=== PATIENT | male | born 1975 | race Caucasian/White ===

== ENCOUNTER 2024-12-06 14:43 | Emergency (ER) | payer BC, SELFPAY ==
--- NOTE | 2024-12-06 14:57 | ED_ITS ---
HPI - Eye Problem General Chief complaint: Eye Problems Stated complaint: Left Eye Problem Time Seen by Provider: 12/06/24 14:57 Source: patient, RN notes reviewed and old records reviewed Mode of arrival: ambulatory Limitations: no limitations History of Present Illness HPI Narrative: 49-year-old male presents to the [facility] with complaints of sudden onset blurry vision to the left eye that started when he woke up Tuesday morning. Denies any trauma. No redness. Does wear glasses. Tried reaching out to an dot compliance specialist, sure vision. Denies any floaters, shadows or flashes of light. Denies any pain Treatments Prior to Arrival: none Related Data Home Medications ?Medication ?Instructions ?Recorded ?Confirmed ?Last Taken ?Type buspirone 10 mg tablet mg 12/06/24 Unknown History lamotrigine 200 mg tablet mg 12/06/24 Unknown History pravastatin 10 mg tablet mg 12/06/24 Unknown History venlafaxine 150 mg mg PO 12/06/24 Unknown History capsule,extended release 24 hr Allergies Allergy/AdvReac Type Severity Reaction Status Date / Time No Known Allergies Allergy Verified 12/06/24 14:46 Review of Systems Review of Systems: All systems reviewed & are unremarkable except as noted in HPI and below Constitutional: Constitutional: Reports no additional constitutional complaints Eyes: Eyes: Reports as per HPI ENT: Reports system reviewed and no additional complaints, except as documented Cardiovascular: Cardiovascular: Reports no additional cardiovascular complaints, Denies chest pain and Denies dyspnea Respiratory: Respiratory: Reports no additional respiratory complaints, Denies chest congestion, Denies cough and Denies dyspnea Musculoskeletal: Musculoskeletal: Reports no additional musculoskeletal complaints Integumentary/Breasts: Skin/Breast: Reports system reviewed and no additional complaints, except as docu PMFSH Comments At the time of my signature, I reviewed and agree with the nursing past medical, surgical, social, and family history. There is no relevant family history pertinent to the patient complaint. Exam Const: General: cooperative, healthy appearing, comfortable, no acute distress, well developed, alert and well nourished Nutritional Appearance: well nourished Orientation/consciousness: patient oriented x3 Limitations: no limitations HENMT: Head: normal to inspection Ears: hearing grossly normal bilaterally, external ears normal, TM's normal bilaterally, EAC's normal, mastoids normal and no periauricular adenopathy Mouth: Yes Normal oral and palatal mucosa present, Yes lip normal, Yes tongue normal and Yes moist mucous membranes Eyes: General: appearance normal, both eyes and all related structures Alignment and Position: alignment normal Periorbital: periorbital findings normal Eyelids: eyelids normal Conjunctivae: conjunctivae normal Sclera: sclerae normal Cornea: corneas normal Pupils: Equal, round and reactive pupils present EOM: EOMs intact bilaterally and No Nystagmus present Direct Ophthalmoscopy: no photophobia Neck: Neck: normal visual inspection, full ROM, no lymphadenopathy and no meningeal signs Chest: Chest palpation & inspection: normal inspection of the chest Resp: Effort & Inspection: normal respiratory effort and able to speak in complete sentences Auscultation: clear to auscultation bilaterally, no crackles, no rales, no rhonchi and no wheezes Cardio: Rate: regular rate Skin: General skin exam: normal color and no rashes or lesions noted Neuro: General: patient oriented x3, gait normal, moves all extremities and no meningeal signs Cognition (Neuro): normal cognition Speech: normal speech Gait exam (Neuro): Normal gait present Extrem: General: normal to inspection, full ROM, capillary refill normal and normal gait Psych: Appearance: grossly normal and well kempt Mental Status: mental status grossly normal Speech and movement: Normal speech and movement present and Clear speech present Affect: normal affect Attitude: cooperative Course Course Level of Care: Express Care Visit Vital Signs Vital signs: Vital Signs Temperature 97.8 F 12/06/24 15:00 Pulse Rate 75 12/06/24 15:00 Respiratory Rate 16 12/06/24 15:00 Blood Pressure 140/81 12/06/24 15:00 Pulse Oximetry 97 12/06/24 15:00 Oxygen Delivery Room Air 12/06/24 15:00 Temperature 97.8 F 12/06/24 15:00 Pulse Rate 75 12/06/24 15:00 Respiratory Rate 16 12/06/24 15:00 Blood Pressure 140/81 12/06/24 15:00 Pulse Oximetry 97 12/06/24 15:00 Oxygen Delivery Room Air 12/06/24 15:00 Reviewed MDM - Eye Problem MDM Narrative Medical decision making narrative: Patient with 2 day history of left eye blurry vision, denies any pains, callie aters, shadows. Patient with no trauma. No acute findings noted on exam. No hyphema. Discussed with patient to pursue to the emergency room, discussed concerns for an eye stroke, retinal detachment as well as could be a simple as eye strain, migraines. Discussed with patient that we are unable to perform a complete eye exam. Unable to do advanced testing to rule out diagnosis that we discussed in detail. Patient is declining transfer to the ER at this time, wants to see an eye doctor instead. Patient states if he can not get into the eye doctor he will go directly to the emergency room Differential Diagnosis Differential diagnosis: Likely corneal abrasion, conjunctivitis, acute iritis, hyphema, periorbital cellulitis, glaucoma and other (Retinal detachment, eye stroke) Critical Care Time Critical Care Time Critical Care Time: No Discharge Plan Discharge Clinical Impression: Blurred vision, left eye Patient Disposition: Home, Self-Care Condition: Stable Instructions: Blurred Vision (ED) Additional Instructions: It is recommended that you do see an eye doctor as soon as possible. If he cannot get in with urine eye doctor please go directly to emergency room for further evaluation, testing. Patient Language: Gabonese Prescriptions: No Action lamotrigine 200 mg tablet venlafaxine 150 mg capsule,extended release 24hr PO pravastatin 10 mg tablet buspirone 10 mg tablet Follow-up/Referrals: Adam,Suresh Alva MD [Primary Care Provider] - 2 Weeks (express care follow up ) Stand Alone Forms: Work/School Release IP Time of Disposition: 15:09
[2024-12-06 15:00] VITALS: BP 140/81; PULSE 75; RESP 16; TEMP 36.6; O2SAT 97
--- OUTSIDE RECORDS SUMMARY | 2024-12-06 15:07 | XMS_ITS | Continuity of Care Document ---
Author Organization [facility] Address [address] [place] [address] [place] [address] Phone Care Team Providers Care Dermatologist Managing Partner Name Role Phone Natan Rosa MD Unavailable Unavailable Procedures Procedure Date Office/outpatient Visit, [facility] Office/outpatient Visit, [facility] Advance Directives Directive Yes / No Effective Date File Name No Information Encounters Encounter Description Practice Location Reason(s) For Visit Diagnoses Date Provider Providers Copied on Encounter Office/outpat ient Visit, [facility], [id number] [place] [address] [address], [place], [place], [id number], tel:[phone] SEC [place] Professional No Information 9 Shelley Gama. [address] [facility] [place], [place], [id number], [place]. tel:[phone] Office/outpat ient Visit, [facility], [address] [place] [address] [address], [place], [place], [id number], tel:[phone] SEC Trevor PR Professional No Information 9 Shelley Gama. [address] [facility], [place], [place], [id number], [place]. tel:[phone] Family History Family Member Type Diagnosis Age At Onset No Information Payers Payer name Insurance type Covered alliance party ID Authoriza tion(s) [employer] [place] [id number] Social History Type Description Quantity Date Captured Comments Sex Male Smoking Status No Information Chief Complaint And Reason For Visit No Information Reason For Referral Reason For Referral No Information History Of Present Illness Encounter Date Complaint History Of Prese nt Illness No Information Functional Status Date Functional Assessmen t No Information Instructions Date Instruction Additional Infor mation No Information Assessments Type Assessment Date No Information Patient Care Teams Name Effective Dates (start - stop) Status Members No Information
--- OUTSIDE RECORDS SUMMARY | 2024-12-06 15:07 | XMS_ITS | Encounter Summary ---
Author Organization [facility] Address 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 Gender Identity Not on file Sexual Orientation Not on file documented as of this encounter Last Filed Vital Signs Vital Sign Reading Time Taken Comments Blood Pressure 124/70 03/01/2005 1:15 PM CDT Pulse - - Temperature 36.9 C (98.5 F) 03/01/2005 1:15 PM CDT Respiratory Rate - - Oxygen Saturation - - Inhaled Oxygen Concentration - - Weight 70.3 kg (155 lb) 03/01/2005 1:15 PM CDT Height - - Body Mass Index - - documented in this encounter Plan of Treatment Upcoming Encounters Date Type Department Care Team (Late Contact Info) Description 03/13/2025 9:00 AM CDT Office Visit [facility] Primary Care [address] [place] [phone] Suresh Medina MD [address] [place] [address] [address] [phone] documented as of this encounter Visit Diagnoses Not on filedocumented in this encounter Care Teams Patch Setter Relationship Specialty Start Date End Date Suresh Medina MD [address] [place] [address] [address] [phone] PCP - General 07/20/05 documented as of this encounter
--- OUTSIDE RECORDS SUMMARY | 2024-12-06 15:07 | XMS_ITS | Clinical Summary ---
Author Organization [id number] Address [address] [place] [address] Care Team Providers Care Leadership Development Instructor Name Role Phone Suresh Medina MD Primary Care Provider + Allergies No known active allergies Medications venlafaxine XR (EFFEXOR-XR) 150 mg 24 hr capsule Take 1 capsule (150 mg total) by mouth daily 03/13/2018 Active lamoTRIgine (LaMICtal) 200 mg tablet 01/04/2019 Active busPIRone (BUSPAR) 10 mg tablet Take 1 tablet (10 mg total) by mouth 2 times daily 06/30/2018 Active pravastatin (PRAVACHOL) 10 mg tablet Take 1 tablet (10 mg total) by mouth daily 10/07/2023 Active Active Problems Problem Noted Date Diagnosed Date Encounter for screening colonoscopy 11/08/2023 Immunizations Immunization Administration Dates Next Due Influenza, Quadrivalent, Spl it, Preservative Free, Intramuscular 06/10/2021 Medical History Medical History Date Comments Seizures (HCC) Social History Tobacco Use Types Packs/Day Years Used Date Smoking Tobacco: Never Smokeless Tobacco: Never AUDIT-C Answer Date Recorded Q1: How often do you have a drink containing alc ohol? Monthly or less 07/17/2024 Average Number of Drinks Not on file 024 Frequency of Binge Drinking Not on file 07/06 Personal Safety Answer Date Recorded Have you ever been in or are you currently in a harmful physical or emotional relationship or is someone making you feel afraid or unsafe? 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 Gender Identity Not on file Sexual Orientation Not on file Obstetrics History Last Filed Vital Signs Vital Sign Reading Time Taken Comments Blood Pressure 129/84 07/18/2024 8:57 AM LADLE BUILDER Pulse 60 07/18/2024 8:57 AM LADLE BUILDER Temperature 36.8 C (98.3 F) 07/18/2024 8:57 AM LADLE BUILDER Respiratory Rate 16 07/18/2024 8:57 AM LADLE BUILDER Oxygen Saturation 98% 07/18/2024 8:57 AM LADLE BUILDER Inhaled Oxygen Concentration - - Weight 100.2 kg (221 lb) 07/18/2024 7:18 AM LADLE BUILDER Height 177.8 cm (5' 10 ) 07/18/2024 7:18 AM LADLE BUILDER Body Mass Index 31.71 07/18/2024 7:18 AM LADLE BUILDER Plan of Treatment Health Maintenance Due Date Last Done Comments Depression Screening 1975 Hepatitis C Screening 1973 Prostate Cancer Screening-PSA 1973 Hepatitis B Screening 1991 Regular Well Visit/Exam 18-64 1991 Covid-19 Vaccine (3 - season) 2024 11/25/2020, 11/04/2020 Zoster Vaccine (2 of 2) 08/06/2024 06/11/2024 DTaP/Tdap/Td Vaccine (3 - Td or Tdap) 09/20/2032 09/20/2022, 10/02/2010 Colon Cancer Screening-Colonoscopy 07/18/2034 07/18/2024 Pneumococcal vaccine <65 Aged Out 10/15/2019 No longer eligible based on patient's age to complete this topic Influenza Vaccine Completed 2024, , 06/07/2022, Additional history exists Procedures Procedure Name Priority Date/Time Associated Diagnosis Comments COLONOSCOPY 07/18/2024 7:21 AM LADLE BUILDER from Last 3 Months or Most Recently Relevant to Health Maintenance Results * Colonoscopy (07/18/2024 7:21 AM LADLE BUILDER) Anatomical Region Laterality Modality Other Narrative Procedure Note Luda Patel MD - 07/18/2024 7:21 AM CST [facility] Patient Name: Julien Haines Procedure Date: 07/18/2024 7:21 AM Date of : 1975 Admit Type: Outpatient Age: 49 Gender: Male Attending MD: Luda Patel M.D. Room: [facility] RO[facility] 1 Note Status: Finalized Patient Profile: This is a 49 year old male. No family history ofcolon cancer. Procedure: Colonoscopy Indications: Screening for colorectal malignant neoplasm, Last colonoscopy: 2018 Referring MD: Suresh Medina M.D. Providers: Luda Patel M.D. Impression: - Two 3 mm polyps in the transverse colon, removed with a jumbo cold forceps. Resected andretrieved. - Internal hemorrhoids. Recommendation: - Await pathology results. - Repeat colonoscopy in 5 years for surveillance. Medicines: Monitored Anesthesia Care Complications: No immediate complications. Estimated Blood Loss: Estimated blood loss: none. Procedure: Pre-Anesthesia Assessment: - Prior to the procedure, a History and Physicalwas performed, and patient medications and allergieswere reviewed. The patient's tolerance of previous anesthesia was also reviewed. The risks andbenefits of the procedure and the sedation options and risks were discussed with the patient. All questions were answered, and informed consent was obtained. Prior Anticoagulants: The patient has taken noanticoagulant or antiplatelet agents. ASA Grade Assessment: Per anesthesia note and evaluation. After reviewing the risks and benefits, the patient was deemed in satisfactory condition to undergo the procedure. The benefits, risks and alternatives of theprocedure and sedation were discussed and informed consentwas obtained. All questions were answered. Please referto the signed informed consent document in the medical record. The bowel preparation used was Miralax and bisacodyl tablets via split dose instruction. The scope was passed under direct vision. The Pediatric Colonoscope PCF-H190L [id number] was introducedthrough the anus and advanced to the the cecum, identifiedby appendiceal orifice and ileocecal valve. Thequality of the bowel preparation was good. Bowel prep was administered using a split dose. Findings: The perianal and digital rectal examinations were normal. The cecum appeared normal. Two sessile polyps were found in the transverse colon. The polypswere 3 mm in size. These polyps were removed with a jumbo cold forceps. Resection and retrieval were complete. The rectum, sigmoid colon and descending colon appeared normal. Internal hemorrhoids were found during retroflexion. The hemorrhoids were medium-sized. Electronically signed by Luda Patel M.D. Luda Patel M.D. 07/18/2024 8:31:41 AM Number of Addenda: 0 Note Initiated On: 07/18/2024 7:21 AM Procedure Code(s): --- Professional --- 27122, Colonoscopy, flexible; with biopsy, single or multiple Diagnosis Code(s): --- Professional --- Z12.11, Encounter for screening for malignant neoplasm of colon K64.8, Other hemorrhoids D12.3, Benign neoplasm of transverse colon (hepatic flexure orsplenic flexure) CPT copyright 2020 [employer]. All rights reserved. The codes documented in this report are preliminary and upon commercial loan processor reviewmay be revised to meet current compliance requirements. Recognized by the [employer] [employer] for promoting quality in endoscopy Luda Patel MD ENDOSCOPY PROCEDURES Final Result from Last 3 Months or Most Recently Relevant to Health Maintenance Insurance [employer] [place] [employer] Advance Directives For more information, please contact: [phone] * Full Code (Latest Code Status on File) Date Activated Date Inactivated Comments 07/18/2024 7:14 AM 07/18/2024 1:10 PM * Full Code Date Activated Date Inactivated Comments 07/18/2024 7:14 AM 07/18/2024 7:14 AM Care Teams Leadership Development Instructor Relationship Specialty Start Date End Date Suresh Medina MD PCP - General Internal Medicine 02/15/19
--- OUTSIDE RECORDS SUMMARY | 2024-12-06 15:07 | XMS_ITS | Encounter Summary ---
Author Organization [facility] Address [address] [place] [address] Care Team Providers Care Supervisor [address] Name Role Phone Suresh Medina MD Primary Care Provider [phone] Encounter Details Date Type Department Care Team (Late Contact Info) Description 06/20/2007 Outpatient Historical [facility] Internal Medicine [address] [address] Suresh Medina MD [address] [place] [address] [address] [place] [address] Social History Tobacco Use Types Packs/Day Years Used Date Smoking Tobacco: Never Assessed Sex and Gender Information Value Date Recorded Sex Assigned at Not on file 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 Gender Identity Not on file Sexual Orientation Not on file documented as of this encounter Last Filed Vital Signs Vital Sign Reading Time Taken Comments Blood Pressure 100/70 06/20/2007 3:45 PM CDT Pulse - - Temperature 36.1 C (97 F) 06/20/2007 3:45 PM CDT Respiratory Rate - - Oxygen Saturation - - Inhaled Oxygen Concentration - - Weight 70.3 kg (155 lb) 06/20/2007 3:45 PM CDT Height - - Body Mass Index - - documented in this encounter Plan of Treatment Upcoming Encounters Date Type Department Care Team (Late Contact Info) Description 03/13/2025 9:00 AM CDT Office Visit [facility] Primary Care [address] [place] [phone] Suresh Medina MD [address] [place] [address] [place] [phone] documented as of this encounter Visit Diagnoses Not on filedocumented in this encounter Care Teams Supervisor [address] Relationship Specialty Start Date End Date Suresh Medina MD [address] [place] [address] [place] [phone] PCP - General 07/20/05 documented as of this encounter
--- OUTSIDE RECORDS SUMMARY | 2024-12-06 15:07 | XMS_ITS | Encounter Summary ---
Author Organization [facility] Address [address] [place] [address] Care Team Providers Care Rn Post Partum Name Role Phone Suresh Medina MD Primary Care Provider [phone] Encounter Details Date Type Department Care Team (Latest Contact Info) Description 03/24/2007 Outpatient Historical [facility] Internal Medicine [address] [address] Suresh Medina MD [address] [place] [address] [address] [place] [address] Fever (Primary Dx) Social History Tobacco Use Types Packs/Day Years Used Date Smoking Tobacco: Never Assessed Sex and Gender Information Value Date Recorded Sex Assigned at Not on file 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 Gender Identity Not on file Sexual Orientation Not on file documented as of this encounter Plan of Treatment Upcoming Encounters Date Type Department Care Team (Late st Contact Info) Description 03/13/2025 9:00 AM CDT Office Visit [facility] Primary Care [address] [place] [address] Suresh Medina MD [address] [place] [address] [address] [place] [address] documented as of this encounter Procedures Procedure Name Priority Date/Time Associated Diagnosis Comments WEST NILE VIRUS ANTIBODY PANEL, BLOOD Routine 03/24/2007 11:29 AM CDT CBC WITH DIFFERENTIAL Routine 03/24/2007 11:29 AM CDT CBC WITH DIFFERENTIAL Routine 03/24/2007 11:29 AM CDT TSH Routine 03/24/2007 11:29 AM CDT CK Routine 03/24/2007 11:29 AM CDT COMPREHENSIVE METABOLIC PANEL Routine 03/24/2007 11:29 AM CDT documented in this encounter Results * WEST NILE VIRUS ANTIBODY PANEL, BLOOD (03/24/2007 11:29 AM CDT) Pathologist [facility] WEST NILE, IGG 0.12 INTER FACE SYSTEM Comment: Reference Range: <1.30 NEGATIVE 1.30-1.49 EQUIVOCAL >=1.50 POSITIVE WEST NILE, IGM 0.06 INTER FACE SYSTEM Comment: Reference Range: <0.90 NEGATIVE 0.90-1.10 EQUIVOCAL >1.10 POSITIVE West Nile Virus (WNV) IgM antibodies, in blood or cerebrospinal fluid, are positive in most infected people within 8 days of onset of symptoms and may remain detectable for months. In our laboratory, sera with reactive IgM are rerun in a modified test to rule out nonspecific reactions. IgG antibodies indicate either current or past exposure to the virus. Antibodies to WNV may cross-react with other viruses (e.g. Dengue, Big Sky Encephalitis, Eastern Equine Encephalitis, Yellow Fever, Enterovirus, CMV). Lab test performed by: [facility] [address] [place] [address] Ori GOLDSTEIN MD 03/24/2007 11:2 9 AM CDT us Suresh Medina MD CHEMISTRY ORDERABLES Edited INTERFACE SYSTEM Refer to clinic/hospital department * (ABNORMAL) CBC WITH DIFFERENTIAL (03/24/2007 11:29 AM CDT) NEUTROPHILS 63 45 - 70 % INTERFAC E SYSTEM LYMPHOCYTES 28 16 - 45 % INTERFAC E SYSTEM MONOCYTES 6 3 - 13 % INTERFACE SYSTEM EOSINOPHILS 3 0 - 7 % INTERFAC E SYSTEM BASOPHILS 0 0 - 2 % INTERFACE SYSTEM NEUTROPHIL ABSOLUTE 1.79(L) 1.90 - 7.00 K/uL INTERFACE SYSTEM LYMPHOCYTE ABSOLUTE 0.80 0.70 - 4.50 K/uL INTERFACE SYSTEM MONOCYTE ABSOLUTE 0.17 0.10 - 1.30 K/uL INTERFACE SYSTEM EOSINOPHIL ABSOLUTE 0.08 0.00 - 0.70 K/uL INTERFACE SYSTEM BASOPHILS ABSOLUTE 0.01 0.00 - 0.20 K/uL INTERFACE SYSTEM 03/24/2007 11:2 9 AM CDT Suresh Medina MD HEMATOLOGY ORDERABLES Edited Performing Organization Address City/[facility] de Phone Number INTERFACE SYSTEM Refer to clinic/hospital department * (ABNORMAL) CBC WITH DIFFERENTIAL (03/24/2007 11:29 AM CDT) WBC 2.9(L) 4.0 - 9.8 K/uL INTERFACE SYSTEM RBC 4.68 4.50 - 5.40 M/uL INTERFACE SYSTEM HEMOGLOBIN 14.1 13.6 - 16.5 g/dL INTERFACE SYSTEM HEMATOCRIT 40.8 40.0 - 48.0 % INTERFACE SYSTEM MCV 87.2 82.0 - 99.0 fL INTERFACE SYSTEM MCH 30.1 27.2 - 32.6 pg INTERFACE SYSTEM MCHC 34.6 31.5 - 35.5 % INTERFACE SYSTEM RDW 13.7 11.5 - 14.5 % INTERFACE SYSTEM RDW-STDEV 43.3 37.1 - 48.7 fL INTERFACE SYSTEM PLATELETS 135(L) 140 - 350 K/uL INTERFACE SYSTEM MPV 11.3 9.3 - 12.4 fL INTERFACE SYSTEM 03/24/2007 11:2 9 AM CDT Suresh Medina MD HEMATOLOGY ORDERABLES Edited Performing Organization Address [facility] de Phone Number INTERFACE SYSTEM Refer to clinic/hospital department * TSH (03/24/2007 11:29 AM CDT) TSH 1.33 0.27 - 4.20 uU/mL INTERFACE SYSTEM 03/24/2007 11:2 9 AM CDT Suresh Medina MD CHEMISTRY ORDERABLES Edited Performing Organization Address [facility] de Phone Number INTERFACE SYSTEM Refer to clinic/hospital department * (ABNORMAL) CK (03/24/2007 11:29 AM CDT) CK 1,306(H) 10 - 170 U/L INTERFACE SYSTEM 03/24/2007 11:2 9 AM CDT Suresh Medina MD CHEMISTRY ORDERABLES Edited Performing Organization Address [facility] de Phone Number INTERFACE SYSTEM Refer to clinic/hospital department * (ABNORMAL) COMPREHENSIVE METABOLIC PANEL (03/24/2007 11:29 AM CDT) GLUCOSE 97 65 - 99 mg/dL INTERFACE SYSTEM CREATININE 0.87 0.67 - 1.17 mg/dL INTERFACE SYSTEM CALCIUM 8.1(L) 8.4 - 10.2 mg/dL INTERFACE SYSTEM ALKALINE PHOSPHATASE 100 40 - 129 U/L INTERFACE SYSTEM AST 61(H) 12 - 38 U/L INTERFACE SYSTEM ALT 37 0 - 41 U/L INTERFACE SYSTEM TOTAL PROTEIN 7.3 6.3 - 8.6 g/dL INTERFACE SYSTEM ALBUMIN 4.2 3.4 - 4.8 g/dL INTERFACE SYSTEM BILIRUBIN TOTAL 0.3 0.2 - 1.0 mg/dL INTERFACE SYSTEM BUN 16 6 - 20 mg/dL INTERFACE SYSTEM SODIUM 137 135 - 145 mmol/L INTERFACE SYSTEM POTASSIUM 3.7 3.5 - 4.9 mmol/L INTERFACE SYSTEM CHLORIDE 103 96 - 108 mmol/L INTERFACE SYSTEM CO2 29 22 - 30 mmol/L INTERFACE SYSTEM GFR, >60 >=60 mL/min/1. 7 sq meter INTERFACE SYSTEM GFR >60 >=60 mL/min/1. 7 sq meter INTERFACE SYSTEM Comment: Estimated GFR rate interpretative information for both Americans and non- Americans is available on the [facility] at: [email or web address] Select: Lab Policies and Procedures Select: Reference Ranges - GFR 03/24/2007 11:2 9 AM CDT us Suresh Medina MD CHEMISTRY ORDERABLES Edited INTERFACE SYSTEM Refer to clinic/hospital department documented in this encounter Visit Diagnoses Diagnosis Fever and other physiologic disturbances of temperature regulation- Primary documented in this encounter Care Teams Rn Post Partum Relationship Specialty Start Date End Date Suresh Medina MD [address] [place] [address] PCP - General 07/20/05 documented as of this encounter
--- OUTSIDE RECORDS SUMMARY | 2024-12-06 15:07 | XMS_ITS | Encounter Summary ---
Author Organization [facility] Address 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 Gender Identity Not on file Sexual Orientation Not on file documented as of this encounter Plan of Treatment Upcoming Encounters Date Type Department Care Team (Late Contact Info) Description 03/13/2025 9:00 AM CDT Office Visit [facility] Primary Care [address] [place] [address] Suresh Medina MD [address] [place] [address] [address] [place] [phone] documented as of this encounter Visit Diagnoses Not on filedocumented in this encounter Care Teams Director Pediatric Relationship Specialty Start Date End Date Suresh Medina MD [address] [place] [address] [place] [address] PCP - General 07/20/05 documented as of this encounter
--- OUTSIDE RECORDS SUMMARY | 2024-12-06 15:07 | XMS_ITS | Encounter Summary ---
Author Organization [facility] Address 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 documented in this encounter Plan of Treatment Upcoming Encounters Date Type Department Care Team (Late st Contact Info) Description 03/13/2025 9:00 AM CDT Office Visit [facility] Primary Care [facility] [address] [place] [address] [address] [place] [address] Suresh Medina MD [address] [place] [address] [address] [place] [phone] documented as of this encounter Visit Diagnoses Not on filedocumented in this encounter Care Teams Director Presales Relationship Specialty Start Date End Date Suresh Medina MD [address] [place] [address] [place] [phone] PCP - General 07/20/05 documented as of this encounter
--- OUTSIDE RECORDS SUMMARY | 2024-12-06 15:07 | XMS_ITS | Encounter Summary ---
Author Organization [facility] Address [address] [place] [address] Care Team Providers Care Commercial Print Salesman Name Role Phone Suresh Medina MD Primary Care Provider [phone] Encounter Details Date Type Department Care Team (Latest Contact Info) Description 07/20/2005 Inpatient Historical HIS PATIENT IN A BED 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 Gender Identity Not on file Sexual Orientation Not on file documented as of this encounter Plan of Treatment Upcoming Encounters Date Type Department Care Team (Late st Contact Info) Description 03/13/2025 9:00 AM CDT Office Visit [facility] Primary Care [address] [place] [address] Suresh Medina MD [address] [place] [address] [address] [place] [address] documented as of this encounter Procedures Procedure Name Priority Date/Time Associated Diagnosis Comments PT AND APTT Routine 07/20/2005 12:20 PM CASH APPLICATION CLERK CBC WITH DIFFERENTIAL Routine 07/20/2005 12:20 PM CASH APPLICATION CLERK CBC WITH DIFFERENTIAL Routine 07/20/2005 12:20 PM CASH APPLICATION CLERK COMPREHENSIVE METABOLIC PANEL Routine 07/20/2005 12:20 PM CASH APPLICATION CLERK documented in this encounter Results * (ABNORMAL) CBC WITH DIFFERENTIAL (07/20/2005 12:20 PM CASH APPLICATION CLERK) NEUTROPHILS 80(H) 45 - 70 % INTERFAC E SYSTEM LYMPHOCYTES 12(L) 16 - 45 % INTERFAC E SYSTEM MONOCYTES 8 3 - 13 % INTERFACE SYSTEM EOSINOPHILS 1 0 - 7 % INTERFAC E SYSTEM BASOPHILS 0 0 - 2 % INTERFACE SYSTEM NEUTROPHIL ABSOLUTE 8.63(H) 1.90 - 7.00 K/uL INTERFACE SYSTEM LYMPHOCYTE ABSOLUTE 1.24 0.70 - 4.50 K/uL INTERFACE SYSTEM MONOCYTE ABSOLUTE 0.82 0.10 - 1.30 K/uL INTERFACE SYSTEM EOSINOPHIL ABSOLUTE 0.07 0.00 - 0.70 K/uL INTERFACE SYSTEM BASOPHILS ABSOLUTE 0.02 0.00 - 0.20 K/uL INTERFACE SYSTEM 07/20/2005 12:2 0 PM CASH APPLICATION CLERK [employer] HEMATOLOGY ORDERABLES Final Res ult INTERFACE SYSTEM Refer to clinic/hospital department * (ABNORMAL) CBC WITH DIFFERENTIAL (07/20/2005 12:20 PM CASH APPLICATION CLERK) WBC 10.8(H) 4.0 - 9.8 K/uL INTERFACE SYSTEM RBC 5.09 4.50 - 5.40 M/uL INTERFACE SYSTEM HEMOGLOBIN 15.2 13.6 - 16.5 g/dL INTERFACE SYSTEM HEMATOCRIT 44.5 40.0 - 48.0 % INTERFACE SYSTEM MCV 87.4 82.0 - 99.0 fL INTERFACE SYSTEM MCH 29.9 27.2 - 32.6 pg INTERFACE SYSTEM MCHC 34.2 31.5 - 35.5 % INTERFACE SYSTEM RDW 13.3 11.5 - 14.5 % INTERFACE SYSTEM RDW-STDEV 42.8 37.1 - 48.7 fL INTERFACE SYSTEM PLATELETS 204 140 - 350 K/uL INTERFACE SYSTEM MPV 10.1 9.3 - 12.4 fL INTERFACE SYSTEM 07/20/2005 12:2 0 PM CASH APPLICATION CLERK us Rosa Maria Sivaprasad HEMATOLOGY ORDERABLES Final Res ult Performing Organization Address [facility] de Phone Number INTERFACE SYSTEM Refer to clinic/hospital department * COMPREHENSIVE METABOLIC PANEL (07/20/2005 12:20 PM CASH APPLICATION CLERK) GLUCOSE 86 65 - 109 mg/dL INTERFACE SYSTEM CREATININE 1.1 0.5 - 1.3 mg/dL INTERFACE SYSTEM CALCIUM 8.9 8.6 - 10.2 mg/dL INTERFACE SYSTEM AST 24 12 - 38 U/L INTERFACE SYSTEM ALKALINE PHOSPHATASE 91 40 - 129 U/L INTERFACE SYSTEM BUN 15 6 - 20 mg/dL INTERFACE SYSTEM BILIRUBIN TOTAL 0.4 0.2 - 1.0 mg/dL INTERFACE SYSTEM ALBUMIN 4.1 3.4 - 4.8 g/dL INTERFACE SYSTEM TOTAL PROTEIN 7.1 6.3 - 8.6 g/dL INTERFACE SYSTEM ALT 26 0 - 41 U/L INTERFACE SYSTEM SODIUM 137 135 - 145 mmol/L INTERFACE SYSTEM POTASSIUM 3.8 3.5 - 4.9 mmol/L INTERFACE SYSTEM CHLORIDE 102 96 - 108 mmol/L INTERFACE SYSTEM CO2 25 22 - 30 mmol/L INTERFACE SYSTEM 07/20/2005 12:2 0 PM CASH APPLICATION CLERK [facility] CHEMISTRY ORDERABLES Final Resu lt Performing Organization Address [facility] Phone Number INTERFACE SYSTEM Refer to clinic/hospital department * PT AND APTT (07/20/2005 12:20 PM CASH APPLICATION CLERK) PROTIME 14.1 12.7 - 15.1 Seconds INTERFACE SYSTEM Comment: Note new reference range effective 05. INR therapeutic range is not affected. INR 1.0 0.9 - 1.1 INTERFACE SYSTEM Comment: INR Therapeutic Range: Adult: 2.0 - 3.0 for pulmonary embolism or prophylaxis against venous thrombosis or systemic embolization. 2.0 - 3.0 for patients with tissue heart valves. 2.5 - 3.5 for patients with mechanical heart valves or post [place]. Pediatric (12 years and under): 1.5 - 3.0 Although the target range in children is not well established , INR values of 1.5 - 3.0 are recommended for most patients. Higher values have been used in children with prosthetic cardiac valves and hereditary clotting disorders. (<3 days) therapeutic ranges have not been established. PTT 31.1 24.4 - 36.4 Seconds INTERFACE SYSTEM Comment: PTT Therapeutic Range: Heparin Level PTT (seconds) <0.10 units/mL <53 0.10 - 0.30 units/mL 53 - 67 0.30 - 0.70 units/mL* 67 - 95* 0.70 - 1.00 units/mL 95 - 116 *corresponds to therapeutic range for unfractionated heparin Note changes in PTT reference and therapeutic ranges effective 07/13/2005 . Refer to updated heparin nomogram. 07/20/2005 12:2 0 PM CASH APPLICATION CLERK us Rosa Maria Morse HEMATOLOGY ORDERABLES Final Res ult INTERFACE SYSTEM Refer to clinic/hospital department documented in this encounter Visit Diagnoses Diagnosis Intestinal infection due to Clostridium difficile- Primary Intestinal infection due to clostridium difficile documented in this encounter Care Teams Commercial Print Salesman Relationship Specialty Start Date End Date Suresh Medina MD [address] [place] [address] PCP - General 07/20/05 documented as of this encounter
--- OUTSIDE RECORDS SUMMARY | 2024-12-06 15:07 | XMS_ITS | Encounter Summary ---
Author Organization [facility] Address 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 780.6-FEVER OF UNKNOWN ORIGIN LAB ORDERS: Order number: [id number] Test Ordered: EHRLICHIA ABS 5901 Order number: [id number] Test Ordered: EHRLICHIA BY PCR 5985 Order number: [id number] Test Ordered: CK 1788 Order number: [id number] Test Ordered: CBC W/ DIFFERENTIAL 3150 Order number: [id number] Test Ordered: COMPREHENSIVE METABOLIC PANEL & GFR 1112 indiajr 03/24/07 03:12 pm STAFF FOLLOW UP: . * Suresh Mdeina MD - 01/24/2008 11:59 AM CDT WEIGHT: 156lbs BLOOD PRESSURE: 120/70 Right Arm Sitting TEMPERATURE: 36.33??c Oral NURSE NAME: Elza Laboy R CHIEF COMPLAINT Patient complains of pain.muscles and joints all over body since Tuesday. Had fever of 101 on and Tue HISTORY: Unusual case, pt with myalgias, low grade temp all week, no other sx no insect bites known, no change in med or seizure, m pain occ severe, no others in family with illness ROS: ENDOCRINE: No heat or cold intolerance, no excessive thirst. CARDIAC: No chest pain, palpitations, orthopnea, dyspnea on exertion, or paroxysmal nocturnal dyspnea. RESPIRATORY: No dyspnea, cough, hemoptysis or wheezing. SKIN/BREAST/CHEST: No rashes or non-healing lesions. No breast symptoms noted. : No dysuria or hematuria. GI: No abdominal pain, nausea, vomiting, diarrhea, constipation, melena, or hematochezia. PAST MEDICAL HISTORY: reviewed SOCIAL HISTORY: TOBACCO USE: Has no significant smoking history. DISCUSSED SMOKING: neg. ALCOHOL: Does not give any significant history of alcohol usage. DISCUSSED ALCOHOL: neg. PHYSICAL EXAMINATION: CONSTITUTIONAL: GENERAL APPEARANCE: Healthy appearing patient in no distress. EARS, NOSE, MOUTH AND THROAT: EARS: EFFUSION PRESENT BILATERALLY. ORAL: Normal oropharynx. NECK/THYROID: Trachea midline. No thyroid enlargement, tenderness, or mass. No supraclavicular or cervical adenopathy. RESPIRATORY: Clear to auscultation and percussion. Normal respiratory effort. CARDIOVASCULAR: CARDIAC: Regular rhythm. No murmurs, rubs, or gallops. ARTERIAL: No aortic bruits. EDEMA/VARICOSITIES OF EXTREMITIES: No edema or varicosities. GASTROINTESTINAL: ABDOMEN: Soft, non-tender, without masses. Bowel sounds active. LIVER/SPLEEN/KIDNEY: No hepatosplenomegaly, tenderness or nodularity. Kidneys not palpable. SKIN: SKIN: Warm, dry, no diaphoresis, no significant lesions, irritation, rashes or ulcers. No induration, obvious subcutaneous nodules or tightening. NEUROLOGIC: CRANIAL NERVES: warehouse pricing and inventory clerk II-XII grossly intact. No tremor or cerebellar signs noted. OFFICE PROCEDURES: URINALYSIS RESULTS WBC: WBC`s were negative. NITRITE: nitrites were negative. UROBILINOGEN urobilinogen was normal. PROTEIN: protein was negative. pH: pH was 5. U/A BLOOD: blood was hem-trace. SPECIFIC GRAVITY: specific gravity was 1.020. KETONES: ketones were negative. BILIRUBIN: bilirubin was negative. GLUCOSE: glucose was negative. ASSESSMENT/PLAN: 780.39-SEIZURE cont med, has had no events, suspect infectious cause of sx rather than med at this pt 780.6-FEVER OF UNKNOWN ORIGIN labs return with rhabdomyolysis, low wc, low plt, sligh inc lft--concern for viral vs other ie ehrlichiosis, start on doxycycline push fluids, cut down nsaid to 1 daily only--due to plt, SPOKE WITH PT AND RISK FOR WORSENING RHABDOMYOLYSIS--DEC SEIZURE THRESHOLD, RENAL EFFECTS EXPLAINED, IF WORENING FEVER, ACHE SKIN RASH, MENTAL STATUS CHANGE OR OTHER TO GO TO [facility] IMMEDIATELY ADVISED NO DRIVING NEXT FEW DAYS UNTIL SX IMPROVED--WILL REPEAT LAB TUESDAY-SEND EHRLICHIOSIS TESTING MEDICATIONS: DOXYCYCLINE HYCLATE ORAL TABLET 100 MG, 1 Two Times A Day, 20 Dispensed, status: NEW PRESCRIPTION, 03/24/2007. LAB ORDERS: Order number: [id number] Test Ordered: URINALYSIS W/O MICRO 82117 Order number: [id number] Test Ordered: CBC W/ DIFFERENTIAL 3150 run ck, comp, cbc stat NOW Order number: [id number] Test Ordered: COMPREHENSIVE METABOLIC PANEL & GFR 1112 Order number: [id number] Test Ordered: TSH 1720 Order number: [id number] Test Ordered: CK 1788 Order number: [id number] Test Ordered: WEST NILE ANTIBODY PANEL, BLOOD 2168 729.5-PAIN LIMB (LEG OR ARM) as above Patient Education: Risks, benefits, and possible side effects of medication(s) were reviewed with the patient. The patient was allowed to ask questions to stated satisfaction, as well as the spouse. RETURN VISIT : Instructed to call if not improving.ER if worse Electronically Signed by: Suresh Medina MD on Saturday, March 24, 2007 documented in this encounter Plan of Treatment Upcoming Encounters Date Type Department Care Team (Late st Contact Info) Description 03/13/2025 9:00 AM CDT Office Visit [facility] Primary Care [facility] [address] [place] [address] [address] [place] [address] Suresh Medina MD [address] [place] [address] [address] [place] [phone] documented as of this encounter Visit Diagnoses Not on filedocumented in this encounter Care Teams Dependency Case Manager Relationship Specialty Start Date End Date Suresh Medina MD [address] [place] [address] [place] [address] PCP - General 07/20/05 documented as of this encounter
--- OUTSIDE RECORDS SUMMARY | 2024-12-06 15:07 | XMS_ITS | Encounter Summary ---
Author Organization [facility] Address 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 Gender Identity Not on file Sexual Orientation Not on file documented as of this encounter Plan of Treatment Upcoming Encounters Date Type Department Care Team (Late Contact Info) Description 03/13/2025 9:00 AM CDT Office Visit [facility] Primary Care [address] [place] [address] Suresh Medina MD [address] [place] [address] [address] [place] [phone] documented as of this encounter Visit Diagnoses Not on filedocumented in this encounter Care Teams Cattle Broker Relationship Specialty Start Date End Date Suresh Medina MD [address] [place] [address] [place] [address] PCP - General 07/20/05 documented as of this encounter
--- OUTSIDE RECORDS SUMMARY | 2024-12-06 15:07 | XMS_ITS | Encounter Summary ---
Author Organization [facility] Address 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 Gender Identity Not on file Sexual Orientation Not on file documented as of this encounter Plan of Treatment Upcoming Encounters Date Type Department Care Team (Late Contact Info) Description 03/13/2025 9:00 AM CDT Office Visit [facility] Primary Care [address] [place] [phone] Suresh Medina MD [address] [place] [address] [address] [place] [phone] documented as of this encounter Visit Diagnoses Not on filedocumented in this encounter Care Teams Railroader Relationship Specialty Start Date End Date Suresh Medina MD [address] [place] [address] [address] [place] [phone] PCP - General 07/20/05 documented as of this encounter
--- OUTSIDE RECORDS SUMMARY | 2024-12-06 15:07 | XMS_ITS | Encounter Summary ---
Author Organization [facility] Address [address] [place] [address] Care Team Providers Care Quantitative Analyst Name Role Phone Suresh Medina MD Primary Care Provider [phone] Encounter Details Date Type Department Care Team (Late Contact Info) Description 11/12/2003 Outpatient Historical [facility] Internal Medicine [address] [address] Suresh Medina MD [address] [place] [address] [address] [place] [address] Social History Tobacco Use Types Packs/Day Years Used Date Smoking Tobacco: Never Assessed Sex and Gender Information Value Date Recorded Sex Assigned at Not on file Legal Sex Male 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 LOOM CLEANER Gender Identity Not on file Sexual Orientation Not on file documented as of this encounter Last Filed Vital Signs Vital Sign Reading Time Taken Comments Blood Pressure 110/70 11/12/2003 3:45 PM LOOM CLEANER Pulse - - Temperature 36.8 C (98.24 F) 11/12/2003 3:45 PM LOOM CLEANER Respiratory Rate - - Oxygen Saturation - - Inhaled Oxygen Concentration - - Weight 70.3 kg (155 lb) 11/12/2003 3:45 PM LOOM CLEANER Height - - Body Mass Index - - documented in this encounter Plan of Treatment Upcoming Encounters Date Type Department Care Team (Late Contact Info) Description 03/13/2025 9:00 AM CDT Office Visit [facility] Primary Care [address] [place] [phone] Suresh Medina MD [address] [place] [address] [place] [phone] documented as of this encounter Visit Diagnoses Not on filedocumented in this encounter Care Teams Quantitative Analyst Relationship Specialty Start Date End Date Suresh Mednia MD [address] [place] [address] [place] [phone] PCP - General 07/20/05 documented as of this encounter
--- OUTSIDE RECORDS SUMMARY | 2024-12-06 15:07 | XMS_ITS | Encounter Summary ---
Author Organization [facility] Address [address] [place] [address] Care Team Providers Care Gluer And Slicer Hand Name Role Phone Suresh Medina MD Primary Care Provider [phone] Encounter Details Date Type Department Care Team (Late Contact Info) Description 07/19/2005 Outpatient Historical [facility] Internal Medicine [address] [phone] Suresh Medina MD [address] [place] [address] [address] [place] [address] Social History Tobacco Use Types Packs/Day Years Used Date Smoking Tobacco: Never Assessed Sex and Gender Information Value Date Recorded Sex Assigned at Not on file 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 Gender Identity Not on file Sexual Orientation Not on file documented as of this encounter Plan of Treatment Upcoming Encounters Date Type Department Care Team (Late Contact Info) Description 03/13/2025 9:00 AM CDT Office Visit [facility] Primary Care [address] [place] [address] Suresh Medina MD [address] [place] [address] [address] [place] [phone] documented as of this encounter Visit Diagnoses Not on filedocumented in this encounter Care Teams Gluer And Slicer Hand Relationship Specialty Start Date End Date Suresh Medina MD [address] [place] [address] [place] [address] PCP - General 07/20/05 documented as of this encounter
--- OUTSIDE RECORDS SUMMARY | 2024-12-06 15:07 | XMS_ITS | Referral Summary ---
Author Organization [facility] Address [address] [place] [address] Care Team Providers Care First Aid Director Name Role Phone Suresh Medina MD Primary [...] Quadrivalent, Spl it, Preservative Free, Intramuscular 06/10/2021 Social History Tobacco Use Types Packs/Day Years [...] on file Legal Sex Male 2:20 PM REMOTE SENSING SPECIALIST Gender Identity Not on file Sexual Orientation Not on file Last Filed Vital Signs Vital Sign Reading Time Taken Comments Blood Pressure 129/84 07/18/2024 8:57 AM REMOTE SENSING SPECIALIST Pulse 60 07/18/2024 8:57 AM REMOTE SENSING SPECIALIST Temperature 36.8 C (98.3 F) 07/18/2024 8:57 AM REMOTE SENSING SPECIALIST Respiratory Rate 16 07/18/2024 8:57 AM REMOTE SENSING SPECIALIST Oxygen Saturation 98% 07/18/2024 8:57 AM REMOTE SENSING SPECIALIST Inhaled Oxygen Concentration - - Weight 100.2 kg (221 lb) 07/18/2024 7:18 AM REMOTE SENSING SPECIALIST Height 177.8 cm (5' 10 ) 07/18/2024 7:18 AM REMOTE SENSING SPECIALIST Body Mass Index 31.71 07/18/2024 7:18 AM REMOTE SENSING SPECIALIST Plan of Treatment Not on file Procedures Procedure Name Priority Date/Time Associated Diagnosis Comments COLONOSCOPY 07/18/2024 7:21 AM REMOTE SENSING SPECIALIST from Last 3 Months or Most Recently Relevant to Health Maintenance Results * Colonoscopy (07/18/2024 7:21 AM REMOTE SENSING SPECIALIST) Anatomical Region Laterality Modality Other Narrative Procedure Note Luda Patel MD - 07/18/2024 7:21 AM CST [facility] Patient Name: Julien Haines Procedure Date: 07/18/2024 7:21 AM Date of : 1975 Admit Type: Outpatient Age: 49 Gender: Male Attending MD: Luda Patel M.D. Room: [facility] ENDOSCOPY ROOM 1 Note Status: Finalized Patient Profile: This is a 49 year old male. No family history ofcolon cancer. Procedure: Colonoscopy Indications: Screening for colorectal malignant neoplasm, Last colonoscopy: 2019 Referring MD: Suresh Medina M.D. Providers: Luda [...] under direct vision. The Pediatric Colonoscope [id number] was introducedthrough the anus and advanced to [...] 7:21 AM Procedure Code(s): --- Professional --- 56042, Colonoscopy, flexible; with biopsy, single or multiple Diagnosis Code(s): --- Professional --- Z12.11, Encounter for screening for malignant neoplasm of colon K64.8, Other hemorrhoids D12.3, Benign neoplasm of transverse colon (hepatic flexure orsplenic flexure) CPT copyright 2020 [employer]. All rights reserved. The codes documented in this report are preliminary and upon rig welder reviewmay be revised to meet current compliance requirements. Recognized by the [employer] [employer] for promoting quality in endoscopy Luda Patel MD ENDOSCOPY PROCEDURES Final Result from Last 3 Months or Most Recently Relevant to Health Maintenance Insurance ANTHEM ACCESS CHOICE Member Subscriber Plan / Payer (Ef fective 2021-Present) Name:Julien Haines Relation to Subscriber:Self Name:Julien Haines Payer ID:[id number] (NAIC) Type:BC ALLIANCE Address: [address] [place] [id number] Advance Directives For more information, please contact: [phone] * Full Code (Latest Code Status on File) Date Activated Date Inactivated Comments 07/18/2024 7:14 AM 07/18/2024 1:10 PM * Full Code Date Activated Date Inactivated Comments 07/18/2024 7:14 AM 07/18/2024 7:14 AM Care Teams First Aid Director Relationship Specialty Start Date End Date Suresh Medina MD PCP - General Internal Medicine 02/15/19
--- OUTSIDE RECORDS SUMMARY | 2024-12-06 15:07 | XMS_ITS | Encounter Summary ---
Author Organization [facility] Address [address] [place] [address] Care Team Providers Care Stock Worker And Deliverer Name Role Phone Suresh Medina MD Primary Care Provider [phone] Encounter Details Date Type Department Care Team (Late Contact Info) Description 06/28/2005 Outpatient Historical [facility] Internal Medicine [address] [address] Suresh Medina MD [address] [place] [address] [address] [place] [address] Social History Tobacco Use Types Packs/Day Years Used Date Smoking Tobacco: Never Assessed Sex and Gender Information Value Date Recorded Sex Assigned at Not on file Legal Sex Male 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 ASSISTANT Gender Identity Not on file Sexual Orientation Not on file documented as of this encounter Last Filed Vital Signs Vital Sign Reading Time Taken Comments Blood Pressure 118/70 06/28/2005 10:15 AM CDT Pulse - - Temperature 36.2 C (97.1 F) 06/28/2005 10:15 AM CDT Respiratory Rate - - Oxygen Saturation - - Inhaled Oxygen Concentration - - Weight 71.2 kg (157 lb) 06/28/2005 10:15 AM CDT Height - - Body Mass Index - - documented in this encounter Plan of Treatment Upcoming Encounters Date Type Department Care Team (Late Contact Info) Description 03/13/2025 9:00 AM CDT Office Visit [facility] Primary Care [address] [place] [phone] Suresh Medina MD [address] [place] [address] [address] [place] [phone] documented as of this encounter Visit Diagnoses Not on filedocumented in this encounter Care Teams Stock Worker And Deliverer Relationship Specialty Start Date End Date Suresh Medina MD [address] [place] [address] [address] [place] [phone] PCP - General 07/20/05 documented as of this encounter
--- OUTSIDE RECORDS SUMMARY | 2024-12-06 15:07 | XMS_ITS | Encounter Summary ---
Author Organization [facility] Address [address] [place] [address] Care Team Providers Care Electrocardiograph Technician Name Role Phone Surehs Medina MD Primary Care Provider [phone] Encounter Details Date Type Department Care Team (Late Contact Info) Description 03/24/2007 Outpatient Historical [facility] Internal Medicine [address] [phone] Suresh Medina MD [address] [place] [address] [address] [place] [address] Social History Tobacco Use Types Packs/Day Years Used Date Smoking Tobacco: Never Assessed Sex and Gender Information Value Date Recorded Sex Assigned at Not on file Legal Sex Male 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 ASSEMBLY OPERATOR Gender Identity Not on file Sexual Orientation Not on file documented as of this encounter Plan of Treatment Upcoming Encounters Date Type Department Care Team (Late Contact Info) Description 03/13/2025 9:00 AM CDT Office Visit [facility] Primary Care [address] [place] [address] Suresh Medina MD [address] [place] [address] [address] [place] [phone] documented as of this encounter Visit Diagnoses Not on filedocumented in this encounter Care Teams Electrocardiograph Technician Relationship Specialty Start Date End Date Suresh Medina MD [address] [place] [address] [place] [address] PCP - General 07/20/05 documented as of this encounter
--- OUTSIDE RECORDS SUMMARY | 2024-12-06 15:07 | XMS_ITS | Encounter Summary ---
Author Organization [facility] Address 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 MACHINE OPERATOR Gender Identity Not on file Sexual Orientation Not on file documented as of this encounter Plan of Treatment Upcoming Encounters Date Type Department Care Team (Late st Contact Info) Description 03/13/2025 9:00 AM CDT Office Visit [facility] Primary Care [address] [place] [address] Suresh Medina MD [address] [place] [address] [address] [place] [phone] documented as of this encounter Procedures Procedure Name Priority Date/Time Associated Diagnosis Comments EHRLICHIA BY PCR Routine 03/27/2007 9:16 AM CDT EHRLICHIA CHAFFEENSIS ANTIBODIES Routine 03/27/2007 9:10 AM CDT CBC WITH DIFFERENTIAL Routine 03/27/2007 9:10 AM CDT CBC WITH DIFFERENTIAL Routine 03/27/2007 9:10 AM CDT CK Routine 03/27/2007 9:10 AM CDT COMPREHENSIVE METABOLIC PANEL Routine 03/27/2007 9:10 AM CDT documented in this encounter Results * EHRLICHIA BY PCR (03/27/2007 9:16 AM CDT) [facility] EHRLICHIA PCR SPECIMEN Blood INTERFACE SYSTEM EHRLICHIA BY PCR Negative Negative INT ERFACE SYSTEM Comment: The finding of Ehrlichia DNA in a blood specimen is strongly suggestive of acute Ehrlichiosis. The sensitivity of the assay used is comparable to the one that had a sensitivity of 87% for acute ehrlichiosis (Annals of Internal Medicine 1994, 120:730-735). The primers utilized in this assay amplify a 406 base pair fragment from the 16s rRNA gene of all known species of ehrlichiae. The primers appear to be specific in that they do not amplify sequences from other microorganisms or human DNA. For species yielding positive results, the lab retests the specimen with assays for sequences specific for individual ehrlichia species to provide a species identification. This test was developed and performed by [facility]. It has not been cleared or approved by the U.[place]. FDA. 03/27/2007 9:16 AM CDT us Suresh Medina MD CHEMISTRY ORDERABLES Edited INTERFACE SYSTEM Refer to clinic/hospital department * CBC WITH DIFFERENTIAL (03/27/2007 9:10 AM CDT) NEUTROPHILS 70 45 - 70 % INTERFAC E SYSTEM LYMPHOCYTES 21 16 - 45 % INTERFAC E SYSTEM MONOCYTES 6 3 - 13 % INTERFACE SYSTEM EOSINOPHILS 3 0 - 7 % INTERFAC E SYSTEM BASOPHILS 0 0 - 2 % INTERFACE SYSTEM NEUTROPHIL ABSOLUTE 2.64 1.90 - 7.00 K/uL INTERFACE SYSTEM LYMPHOCYTE ABSOLUTE 0.78 0.70 - 4.50 K/uL INTERFACE SYSTEM MONOCYTE ABSOLUTE 0.24 0.10 - 1.30 K/uL INTERFACE SYSTEM EOSINOPHIL ABSOLUTE 0.10 0.00 - 0.70 K/uL INTERFACE SYSTEM BASOPHILS ABSOLUTE 0.01 0.00 - 0.20 K/uL INTERFACE SYSTEM 03/27/2007 9:10 AM CDT Suresh Medina MD HEMATOLOGY ORDERABLES Edited INTERFACE SYSTEM Refer to clinic/hospital department * (ABNORMAL) CBC WITH DIFFERENTIAL (03/27/2007 9:10 AM CDT) WBC 3.8(L) 4.0 - 9.8 K/uL INTERFACE SYSTEM RBC 5.20 4.50 - 5.40 M/uL INTERFACE SYSTEM HEMOGLOBIN 15.5 13.6 - 16.5 g/dL INTERFACE SYSTEM HEMATOCRIT 45.0 40.0 - 48.0 % INTERFACE SYSTEM MCV 86.5 82.0 - 99.0 fL INTERFACE SYSTEM MCH 29.8 27.2 - 32.6 pg INTERFACE SYSTEM MCHC 34.4 31.5 - 35.5 % INTERFACE SYSTEM RDW 13.2 11.5 - 14.5 % INTERFACE SYSTEM RDW-STDEV 41.6 37.1 - 48.7 fL INTERFACE SYSTEM PLATELETS 168 140 - 350 K/uL INTERFACE SYSTEM MPV 11.3 9.3 - 12.4 fL INTERFACE SYSTEM 03/27/2007 9:10 AM CDT Suresh Medina MD HEMATOLOGY ORDERABLES Edited INTERFACE SYSTEM Refer to clinic/hospital department * (ABNORMAL) CK (03/27/2007 9:10 AM CDT) CK 1,008(H) 10 - 170 U/L INTERFACE SYSTEM 03/27/2007 9:10 AM CDT Suresh Medina MD CHEMISTRY ORDERABLES Edited Performing Organization Address City/[facility]/ZIP Co de Phone Number INTERFACE SYSTEM Refer to clinic/hospital department * (ABNORMAL) COMPREHENSIVE METABOLIC PANEL (03/27/2007 9:10 AM CDT) GLUCOSE 79 65 - 99 mg/dL INTERFACE SYSTEM CREATININE 0.86 0.67 - 1.17 mg/dL INTERFACE SYSTEM CALCIUM 9.3 8.4 - 10.2 mg/dL INTERFACE SYSTEM ALKALINE PHOSPHATASE 93 40 - 129 U/L INTERFACE SYSTEM AST 68(H) 12 - 38 U/L INTERFACE SYSTEM ALT 50(H) 0 - 41 U/L INTERFACE SYSTEM TOTAL PROTEIN 7.9 6.3 - 8.6 g/dL INTERFACE SYSTEM ALBUMIN 4.5 3.4 - 4.8 g/dL INTERFACE SYSTEM BILIRUBIN TOTAL 0.3 0.2 - 1.0 mg/dL INTERFACE SYSTEM BUN 18 6 - 20 mg/dL INTERFACE SYSTEM SODIUM 138 135 - 145 mmol/L INTERFACE SYSTEM POTASSIUM 4.3 3.5 - 4.9 mmol/L INTERFACE SYSTEM CHLORIDE 101 96 - 108 mmol/L INTERFACE SYSTEM CO2 27 22 - 30 mmol/L INTERFACE SYSTEM GFR, >60 >=60 mL/min/1.7 sq meter INTERFACE SYSTEM GFR >60 >=60 mL/min/1.7 sq meter INTERFACE SYSTEM Comment: Estimated GFR rate interpretative information for both Americans and non- Americans is available on the [facility] Intranet at: [email or web address] Select: Lab Policies and Procedures Select: Reference Ranges - GFR 03/27/2007 9:10 AM CDT Suresh Medina MD CHEMISTRY ORDERABLES Edited INTERFACE SYSTEM Refer to clinic/hospital department * (ABNORMAL) EHRLICHIA CHAFFEENSIS ANTIBODIES (03/27/2007 9:10 AM CDT) EHRLICHIA CHAFFEENSIS IGG AB <1:64 <1:64 INTERFACE SYSTEM Comment: Human monocytic ehrlichiosis (HME), a tick-transmitted disease caused by Ehrlichia chaffeensis bacteria and is often described as spotless harjinder mountain spotted fever, has been reported in various regions of the [place]. Infected individuals produce specific antibody to E.chaffeensis which can be detected by the IFA test. A single IgG titer of 1:64 or greater indicates exposure to E.chaffeensis. A four fold or greater rise in IgG titer between acute and convalescent sera and/or an IgM titer of 1:20 or more is suggestive of recent or current infection. This test was developed and its performance characteristics have been determined by [employer] [place], [place]. It has not been cleared or approved by the U.S. Food and Drug Administration. The FDA has determined that such clearance or approval is not necessary. Performance characteristics refer to the analytical performance of the test. EHRLICHIA CHAFFEENSIS IGM AB 1:160(H) <1:20 INTERFACE SYSTEM Comment: Human monocytic ehrlichiosis (HME), a tick-transmitted disease caused by Ehrlichia chaffeensis bacteria and is often described as spotless harjinder mountain spotted fever, has been reported in various regions of the [place]. Infected individuals produce specific antibody to E.chaffeensis which can be detected by the IFA test. A single IgG titer of 1:64 or greater indicates exposure to E.chaffeensis. A four fold or greater rise in IgG titer between acute and convalescent sera and/or an IgM titer of 1:20 or more is suggestive of recent or current infection. This test was developed and its performance characteristics have been determined by [facility] [place] [place]. It has not been cleared or approved by the U.S. Food and Drug Administration. The FDA has determined that such clearance or approval is not necessary. Performance characteristics refer to the analytical performance of the test. EHRLICHIA CHAFFEENSIS INTERP see note INTERFACE SYSTEM Comment: Equivocal: Due to a low/negative IgG and a positive IgM, the presence of a recent/current infection should be confirmed by running acute and convalescent sera in parallel and an increasing IgG value detected. Lab test performed by: [employer] [facility] [id number] [place] TROY BOWEN MD 03/27/2007 9:10 AM CDT us Suresh Medina MD CHEMISTRY ORDERABLES Edited INTERFACE SYSTEM Refer to clinic/hospital department documented in this encounter Visit Diagnoses Diagnosis Fever and other physiologic disturbances of temperature regulation- Primary documented in this encounter Care Teams Film Librarian Relationship Specialty Start Date End Date Suresh Medina MD [address] [place] [phone] PCP - General 07/20/05 documented as of this encounter
--- OUTSIDE RECORDS SUMMARY | 2024-12-06 15:07 | XMS_ITS | Clinical Summary ---
Author Organization [facility] Address [address] [place] [address] Care Team Providers Care Manager Intel Name Role Phone Suresh Medina MD Primary Care Provider [phone] Allergies No known active allergies Medications Cholecalciferol, Vitamin D3, (VITAMIN D3) 1,000 unit Oral Tab Take 1 Tab by mouth daily. 30 Tab 3 3 Active Additional Information Patient not taking.Reported on 06/11/2024 lamoTRIgine (LaMICtal) 200 mg tabletIndication s:Convulsions, unspecified convulsion type (CMS/HCC) TAKE 1 TABLET(200 MG) BY MOUTH DAILY Strength: 200 mg 90 Tablet 3 4 Active venlafaxine (EFFEXOR XR) 150 mg Extended Release 24 hour capsule TAKE 1 CAPSULE(150 MG) BY MOUTH DAILY 90 Capsule 3 5 Active pravastatin (PRAVACHOL) 10 mg tablet Take 1 Tablet (10 mg) by mouth daily at bedtime. 100 Tablet 3 5 Active busPIRone (BUSPAR) 10 mg tablet TAKE 1 TABLET(10 MG) BY MOUTH TWICE DAILY 180 Tablet 3 5 Active Active Problems Patient Care Coordination No te Formatting of this note migh t be different from the original. Prev 10/10/23 Problem Noted Date Diagnosed Date Hyperlipidemia 03/13/2012 B12 deficiency 03/13/2012 Vitamin D deficiency 03/13/2012 Depression 10/08/2011 Convulsions 11/12/2003 Resolved Problems Problem Noted Date Diagnosed Date Resolved Date Other specified tick-borne rickettsioses 06/20/2007 10/02/2010 Fever, unspecified 03/24/2007 1 Overview (09/30/2010): Updating IMO/ICD9 Code and Description Pain in limb 03/24/2007 10/02/2010 Screening for thyroid disorder 03/24/2007 10/02/2010 Hemorrhage of rectum and anus 07/19/2005 10/02/2010 Acute sinusitis, unspecified 03/01/2005 10/02/2010 Acute nasopharyngitis (common cold) 11/12/2003 10/02/2010 Encounters Date Type Department Care Team Description 11/13/2024 External Device Data [facility] ABSTRACTION Provider, Abstract 11/13/2024 External Device Data [facility] ABSTRACTION Provider, Abstract 11/10/2024 External Device Data [facility] ABSTRACTION Provider, Abstract 11/09/2024 External Device Data [facility] ABSTRACTION Provider, Abstract 10/30/2024 External Device Data [facility] ABSTRACTION Provider, Abstract 10/29/[address] [place] [address] Suresh Medina MD 10/29/[address] [place] [address] Suresh Medina MD 09/26/2024 External Device Data [facility] ABSTRACTION Provider, Abstract 09/26/2024 External Device Data [facility] ABSTRACTION Provider, Abstract 09/19/2024 External Device Data [facility] ABSTRACTION Provider, Abstract from Last 3 Months Immunizations Immunization Administration Dates Next Due (ADACEL/BOOSTRIX)(10 YR UP) TDAP VACCINE, 0.5ML, IM 09/20/2022,10/02/2010 (PNEUMOVAX 23)(50 YRS UP) PN EUMOCOCCAL POLYSACCHARIDE (PPV23) 0.5 ML, IM 10/15/2019 (SHINGRIX)(50 YRS UP) ZOSTER VACCINE RECOMBINANT, 0.5 ML, IM 06/11/2024 INFLUENZA VACCINE QUADRIVALE NT 6 MOS UP PF IM 07/04/2023,06/10/2021,06/07/2020 INFLUENZA VACCINE TRIVALENT SPLIT VIRUS, (6 MOS UP), 0.5ML (PF), IM 2024 Influenza Seasonal Unspecifi ed Formulation IM 06/07/2022,06/07/2020 Family History Medical History Relation Name Comments Depression Father Relation Name Status Comments Father Social History Tobacco Use Types Packs/Day Years Used Date Smoking Tobacco: Never Passive Smoke Exposure: Never Smokeless Tobacco: Never Tobacco Cessation:Counseling Given: No Alcohol Use Standard Drinks/Week Comments Yes 1.7 (1 standard drink = 0.6 oz p ure alcohol) Sex and Gender Information Value Date Recorded Sex Assigned at Not on file Legal Sex Male 4:19 AM CERTIFIED MEDICAL TECHNICIAN ASSISTANT Gender Identity Not on file Sexual Orientation Not on file Last Filed Vital Signs Vital Sign Reading Time Taken Comments Blood Pressure 102/66 06/11/2024 9:18 AM CDT Pulse 77 06/11/2024 9:18 AM CDT Temperature 36.1 C (97 F) 10/10/2023 9:09 AM CERTIFIED MEDICAL TECHNICIAN ASSISTANT Respiratory Rate 16 10/10/2023 9:09 AM CERTIFIED MEDICAL TECHNICIAN ASSISTANT Oxygen Saturation 98% 06/11/2024 9:18 AM CDT Inhaled Oxygen Concentration - - Weight 105.2 kg (232 lb) 06/11/2024 9:18 AM CDT Height 177.8 cm (5' 10 ) 06/11/2024 9:18 AM CDT Body Mass Index 33.29 06/11/2024 9:18 AM CDT Plan of Treatment Upcoming Encounters Date Type Department Care Team (Late st Contact Info) Description 03/13/2025 9:00 AM CDT Office Visit [facility] Primary Care [address] [place] [address] Suresh Medina MD [address] [facility] [address] [place] [address] Health Maintenance Due Date Last Done Comments Pre-Diabetes and Diabetes Screening 1973 HEPATITIS B VACCINES (1 of 3 - 19+ 3-dose series) 1992 FIT-DNA Q 3 years 2018 FIT/FOBT Q 1 year 2018 07/19/2005 Flex Sig/CT Colonography Q 5 years 2018 ZOSTER VACCINE (2 of 2) 08/06/2024 06/11/2024 Preventative Visit- Commercial 09/05/2024 0 10/10/2023, 09/20/2022, 09/20/2022, Additional history exists DTAP/TDAP/TD VACCINES (3 - T d or Tdap) 09/20/2032 09/20/2022, 10/02/2010 COLORECTAL SCREENING 07/18/2034 07/18/2024, 07/18/20 24 Colorectal Cancer Screening 07/18/2034 INFLUENZA VACCINE Completed 2024, , 06/07/2022, Additional history exists Procedures Procedure Name Priority Date/Time Associated Diagnosis Comments ENDOSCOPY, COLON, SCREENING Routine 07/18/2024 10:29 AM CERTIFIED MEDICAL TECHNICIAN ASSISTANT from Last 3 Months or Most Recently Relevant to Health Maintenance Results * ENDOSCOPY, COLON, SCREENING (07/18/2024 10:29 AM CERTIFIED MEDICAL TECHNICIAN ASSISTANT) us Abstract Provider GI PROCEDURE ORDERABLES Final Result from Last 3 Months or Most Recently Relevant to Health Maintenance Insurance Care Teams Manager Intel Relationship Specialty Start Date End Date Suresh Medina MD [address] [place] [address] PCP - General 07/20/05
--- OUTSIDE RECORDS SUMMARY | 2024-12-06 15:07 | XMS_ITS | Encounter Summary ---
Author Organization [facility] Address 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 Patient reports no known allergies. PHARMACY NUMBER: PROBLEMS: CONGESTION: Patient complains of chest congestion, complains of head congestion. The symptoms beganapproximately 2 weeks ago. Drainage yellow COUGH:Patient complains of cough. The symptoms began approximately 2 weeks ago. Productive green FEVER: . Denies RUNNY NOSE: Patient complains of runny nose. The runny nose symptoms began approximately 2 weeks ago. SECTION 1: DOCTOR`S RESPONSE: giovanny 06/20/07 at 08:45 am see today, he knows he needs eval, not comfortable calling in abx for him without eval FINAL ACTION: john paul 06/20/07 at 08:51 am Spoke with patient 06/20/07 at 08:51 am. Booked appointment: today Electronically Signed by: Daisy Amaya on Wednesday, June 20, 2007 * Suresh Medina MD - 01/19/2008 11:59 AM CDT WEIGHT: 155lbs BLOOD PRESSURE: 100/70 Right Arm Sitting TEMPERATURE: 36.11??c Oral NURSE NAME: Elza LaboyEula CHIEF COMPLAINT Patient complains of cough. x 3 weeks, runny nose HISTORY: HISTORY: 461.9-SINUSITIS UNSPECIFIED cough congestion sore throat x 3 weeks 780.39-SEIZURE chandu med , no recurrence 082.5-EOXE-DNDFB RICKETTSIOSES ehrilichiois resolved PHYSICAL EXAMINATION: CONSTITUTIONAL: GENERAL APPEARANCE: Healthy appearing patient in no distress. EARS, NOSE, MOUTH AND THROAT: EARS: EFFUSION PRESENT BILATERALLY. ORAL: OROPHARYNX ERYTHEMATOUS. NECK/THYROID: Trachea midline. No thyroid enlargement, tenderness, or mass. No supraclavicular or cervical adenopathy. RESPIRATORY: Clear to auscultation and percussion. Normal respiratory effort. CARDIOVASCULAR: CARDIAC: Regular rhythm. No murmurs, rubs, or gallops. ARTERIAL: No aortic bruits. EDEMA/VARICOSITIES OF EXTREMITIES: No edema or varicosities. GASTROINTESTINAL: ABDOMEN: Soft, non-tender, without masses. Bowel sounds active. LIVER/SPLEEN/KIDNEY: No hepatosplenomegaly, tenderness or nodularity. Kidneys not palpable. ASSESSMENT/PLAN: 461.9-SINUSITIS UNSPECIFIED rx MEDICATIONS: ZITHROMAX Z-DOTTIE ORAL TABLET 250 MG, DIRECTED, 1 Dispensed, 1 Fills, status: CONTINUED, 06/20/2007. FLONASE NASAL SUSPENSION 50 MCG/ACT, 2 Every Morning, 1 Dispensed, 1 Fills, status: CONTINUED, 06/20/2007. 780.39-SEIZURE ivonne car tmed RETURN VISIT : Instructed to call if not improving. Electronically Signed by: Suresh Medina MD on Wednesday, June 20, 2007 documented in this encounter Plan of Treatment Upcoming Encounters Date Type Department Care Team (Late st Contact Info) Description 03/13/2025 9:00 AM CDT Office Visit [facility] [address] [place] [address] Suresh Medina MD [address] [place] [address] [address] [place] [address] documented as of this encounter Visit Diagnoses Not on filedocumented in this encounter Care Teams Instructor Modeling Relationship Specialty Start Date End Date Suresh Medina MD [address] [place] [address] [address] [place] [address] PCP - General 07/20/05 documented as of this encounter
--- OUTSIDE RECORDS SUMMARY | 2024-12-06 15:14 | XMS_ITS | Continuity of Care Document ---
Author Organization [facility] Address [address] [place] [address] [place] [address] Phone Care Team Providers Care Commercial Lines Manager Name Role Phone Natan Rosa MD Unavailable Unavailable Procedures Procedure Date Office/outpatient Visit, [facility] Office/outpatient Visit, [facility] Advance Directives Directive Yes / No Effective Date File Name No Information Encounters Encounter Description Practice Location Reason(s) For Visit Diagnoses Date Provider Providers Copied on Encounter Office/[place]pat [place] [facility] [place] [id number] [place] [address] [address], [place], [place], [id number], tel:[phone] SEC [place] Professional No Information 9 Shelley [address]ama. [address] [facility] [place] [place], [id number], [place]. tel:[phone] Office/outpat ient Visit, [facility], [address] [place] [address] [address], [place], [place], [id number], tel:[phone] SEC [place] Professional No Information 9 Shelley Gama. [address] [facility] [address], [place], [place], [id number], [place]. tel:[phone] Family History Family Member Type Diagnosis Age At Onset No Information Payers Payer name Insurance type Covered constitution party ID Authoriza tion(s) [place] [id number] Social History Type Description Quantity Date Captured [...]
== END 2024-12-06 15:13 | disposition home or self-care (01) ==
PROVIDERS: Emergency Provider Nurse Practitioner; PCP Internal Medicine
DX: H53.8 Other visual disturbances (principal); E78.00 Pure hypercholesterolemia, unspecified
CPT/HCPCS: 99202; G0463